=== PATIENT | male | born 1960 | race Caucasian/White ===

== ENCOUNTER → 2016-08-11 | Outpatient (CLI) | payer OTHER ==
--- NOTE | 2016-08-11 08:52 | MR ---
EXAMINATION TYPE: MR knee RT wo con DATE OF EXAM: 08/11/2016 8:26 AM COMPARISON: Correlation outside radiographs 07/31/2016 HISTORY: 55-year-old male with right Knee Pain, prior surgery. TECHNIQUE: Multiplanar, multisequence imaging of the right knee is performed without IV contrast. FINDINGS: ACL, PCL, MCL, and LCL complex are intact. There is some intermediate signal at the femoral origin of the true LCL and at the fibular attachment of the conjoined tendon suggesting mild chronic sprains. In addition, there is moderate fluid seen tracking down along the popliteus myotendinous junction lik verna communicating with the knee joint. A 2.4 cm ganglion cyst formation is possible. There is inner margin fraying of the body of the lateral meniscus and suspected tiny undersurface tea r near the root of the anterior horn, coronal image 17 and sagittal image 22. There is also a partial ly discoid lateral meniscus. Overall lateral compartment articular cartilage volume is maintained. There is an oblique tear involving the posterior horn of the medial meniscus and markedly diminutive medial meniscal body. Severe loss of cartilage and joint space in the weightbearing and peripheral me dial compartment with subchondral bony irregularity, sclerosis, edema, and marginal spurring. There is mild irregular cartilage loss within the patellofemoral compartment especially along the med ial patellar and trochlear facets. There is some mild marginal spurring in the patellofemoral compart ment also noted. Small knee joint effusion mild chronic synovitis and suggestion of small loose bodies anteriorly sumi uring up to 2 mm, sagittal image 16. There is trace fluid seen extending between the tendons of the semimembranosus and medial head gastro cnemius. There is intermediate signal at the semimembranosus insertion onto the medial tibial plateau compatible with tendinosis. Extensor mechanism is intact. Arthroscopy portals are suggested. Normal popliteal artery anatomy and muscle bulk. No suspicious bone marrow replacement. IMPRESSION: 1. Severe medial compartmental osteoarthrosis. The medial meniscal body is markedly diminutive, eithe r sequela of previous meniscectomy or chronic tear. However, there is additional oblique tear involvi ng the posterior horn of the medial meniscus. 2. Small undersurface tear anterior horn lateral meniscus and some inner margin fraying of the latera l meniscal body. The lateral meniscus is also noted to be partially discoid. 3. Mild patellofemoral compartment osteoarthrosis. 4. Small knee joint effusion with mild chronic synovitis and tiny anterior loose bodies measuring 2 m m. 5. Either extension of joint fluid along the popliteus tendon sheath or the development of a 2.4 cm g anglion cyst. 6. Semimembranosus insertional tendinosis.
== END ==
LOC: RADMRIMAIN 07:23
PROVIDERS: ATTEND Orthopaedic Surgery
DX: M23.241 Derangement of anterior horn of lateral meniscus due to old tear or injury, right knee (principal); M17.11 Unilateral primary osteoarthritis, right knee; M65.9 Synovitis and tenosynovitis, unspecified; M67.461 Ganglion, right knee

== ENCOUNTER 2016-09-07 00:30 | Emergency (ER) | payer OTHER ==
[2016-09-07] MEDS ORDERED: SODIUM CHLORIDE 0.9% 1,000 ML IV SCH (01:15)
[2016-09-07] MEDS: SODIUM CHLORIDE 0.9% 1,000 ML IV ONE ×2 (01:19→01:28)
[2016-09-07] MEDS ORDERED: MORPHINE SULFATE 2 MG/ML SYRINGE IVP ONE (01:27)
[2016-09-07] MEDS ORDERED: diphenhydrAMINE 50 MG/ML 1 ML VIAL IVP STA (01:48)
[2016-09-07] MEDS ORDERED: METOCLOPRAMIDE 5 MG/ML 2 ML VIAL IVP STA (01:48)
[2016-09-07 01:50] VITALS: RESP 18
--- NOTE | 2016-09-07 01:53 | ED ---
Recheck HPI - General Chief Complaint: Recheck/Abnormal Lab/Rx Stated Complaint: POST OP Complication Time Seen by Provider: 09/07/16 00:53 Source: patient, EMS, RN notes reviewed Mode of arrival: EMS Limitations: no limitations - History of Present Illness Initial Comments: Patient is a 55-year-old male with chief complaint of vomiting blood and headache the same day after a rhinoplasty. Patient reports that he had a rhinoplasty done by Dr. Jimenez at [facility] today. They stated the patient was discharged and was doing fine. He states that over the past few hours he's had multiple episodes of vomiting and every time he vomited a significant amount of blood from it, patient thinks he is swallowing the blood. He is not on any blood thinners. He also states that he thinks he vomited the medication. Patient denies any chest pain or shortness of breath. He does have a history of hypertension and hyperlipidemia. Patient arrived via EMS and was given 4 mg of Zofran and 4 mg morphine. - Related Data Allergies Allergy/AdvReac Type Severity Reaction Status Date / Time No Known Allergies Allergy Verified 09/07/16 01:14 Review of Systems ROS Statement: Those systems with pertinent positive or pertinent negative responses have been documented in the HPI. ROS Other: All systems not noted in ROS Statement are negative. Past Medical History Past Medical History: Hypertension History of Any Multi-Drug Resistant Organisms: None Reported Past Surgical History: Orthopedic Surgery Additional Past Surgical History / Comment(s): nasal septum repair, nasal polyps , knee Past Psychological History: No Psychological Hx Reported Smoking Status: Never smoker Past Alcohol Use History: None Reported Past Drug Use History: None Reported General Exam - General Exam Comments Initial Comments: pleasant 55 year old male, no distress. Cotton gauze tapped over nares. Limitations: no limitations General appearance: alert, in no apparent distress Head exam: Present: atraumatic, normocephalic, normal inspection Eye exam: Present: normal appearance, PERRL, EOMI. Absent: scleral icterus, conjunctival injection, periorbital swelling ENT exam: Present: mucous membranes moist, TM's normal bilaterally (Evidence of bleeding in the posterior oropharynx.). Absent: normal exam (Bilateral nasal septum swelling. Blood clots in bilateral nares.), normal oropharynx Neck exam: Present: normal inspection. Absent: tenderness, meningismus, lymphadenopathy Respiratory exam: Present: normal lung sounds bilaterally. Absent: respiratory distress, wheezes, rales, rhonchi, stridor Cardiovascular Exam: Present: regular rate, normal rhythm, normal heart sounds. Absent: systolic murmur, diastolic murmur, rubs, gallop, clicks GI/Abdominal exam: Present: soft, normal bowel sounds. Absent: distended, tenderness, guarding, rebound, rigid Extremities exam: Present: normal inspection, full ROM, normal capillary refill. Absent: tenderness, pedal edema, joint swelling, calf tenderness Back exam: Present: normal inspection Neurological exam: Present: alert, oriented X3, CN II-XII intact Psychiatric exam: Present: normal affect, normal mood Skin exam: Present: warm, dry, intact, normal color. Absent: rash Course Vital Signs 09/07/16 09/07/16 09/07/16 00:36 01:43 02:13 Temperature 97.3 F L Pulse Rate 113 H 108 H Pulse Rate [ 106 H Sitting] Pulse Rate [ 108 H Standing] Pulse Rate [ 104 H Supine] Respiratory 16 18 Rate Blood Pressure 168/87 153/85 Blood Pressure 163/87 [Sitting] Blood Pressure 152/70 [Standing] Blood Pressure 162/80 [Supine] O2 Sat by Pulse 92 L 93 L Oximetry 09/07/16 03:49 Temperature 96.9 F L Pulse Rate 107 H Pulse Rate [ Sitting] Pulse Rate [ Standing] Pulse Rate [ Supine] Respiratory 18 Rate Blood Pressure 156/77 Blood Pressure [Sitting] Blood Pressure [Standing] Blood Pressure [Supine] O2 Sat by Pulse 94 L Oximetry Medical Decision Making - Medical Decision Making Patient is a 55-year-old male with chief complaint of vomiting blood and headache the same day after a rhinoplasty. Patient reports that he had a rhinoplasty done by Dr. Jimenez at [facility] today. They stated the patient was discharged and was doing fine. He states that over the past few hours he's had multiple episodes of vomiting and every time he vomited a significant amount of blood from it, patient thinks he is swallowing the blood. Patient given IV fluids, and labs obtained. Patient does have mildly elevated WBC or 15.4 Again, patient has had continues vomiting and recent surgery. Patient does have some bleedingin posterior pharynx. Patient has rhinoplasty today, therefore rhinorocket placement is not avaliable. patient case discussed with Dr. Roman, whom did a face to face interview with patient. He recommends transaminic acid via IV to hold the bleeding. Patient agrees. I also discussedd the case with the contact lens curve grinder doctor of her surgeon while in the [facility], and he agrees to see them in the office tomorrow. Patient given IV reglan and zofran. He tolerated sprite and gingerale. Paitnet reports he feels well enough to go home. Patient will follow up tomorrow with surgerical specialist. Patient discharged with zofran po starter jhoan. j - Lab Data Result diagrams: 09/07/16 02:00 09/07/16 02:00 Lab Results 09/07/16 09/07/16 09/07/16 Range/Units 02:00 02:00 02:00 WBC 15.9 H (3.8-10.6) k/uL RBC 4.90 (4.30-5.90) m/uL Hgb 15.5 (13.0-17.5) gm/dL Hct 43.7 (39.0-53.0) % MCV 89.2 (80.0-100.0) fL MCH 31.6 (25.0-35.0) pg MCHC 35.4 (31.0-37.0) g/dL RDW 12.5 (11.5-15.5) % Plt Count 236 (150-450) k/uL Neutrophils % 91 % Lymphocytes % 5 % Monocytes % 3 % Eosinophils % 0 % Basophils % 0 % Neutrophils # 14.4 H (1.3-7.7) k/uL Lymphocytes # 0.8 L (1.0-4.8) k/uL Monocytes # 0.5 (0-1.0) k/uL Eosinophils # 0.0 (0-0.7) k/uL Basophils # 0.0 (0-0.2) k/uL PT 11.2 (9.0-12.0) sec INR 1.1 (<1.1) APTT 23.0 (22.0-30.0) sec Sodium 139 (137-145) mmol/L Potassium 4.7 (3.5-5.1) mmol/L Chloride 104 (98-107) mmol/L Carbon Dioxide 27 (22-30) mmol/L Anion Gap 8 mmol/L BUN 19 (9-20) mg/dL Creatinine 1.00 (0.66-1.25) mg/dL Est GFR (MDRD) Af Amer >60 (>60 ml/min/1.73 sqM) Est GFR (MDRD) Non-Af >60 (>60 ml/min/1.73 sqM) Glucose 141 H (74-99) mg/dL Calcium 9.2 (8.4-10.2) mg/dL Disposition Clinical Impression: Nausea & vomiting, Bleeding from nasopharynx Disposition: HOME SELF-CARE Condition: Good Instructions: Nosebleed (ED) Additional Instructions: Patient advised to follow-up tomorrow morning with ENT specialist. They're aware that he'll be calling them. Patient also can take a friend ODT every 8 hours. Take the pain medication as prescribed. I recommend remain hydrated with fluids. Return to the emergency department if any worsening signs or symptoms occur. Referrals: Rome Barkley DO [Primary Care Provider] - 1-2 days Time of Disposition: 03:30
[2016-09-07 02:10] LABS: Basophils % (A) 0 %; CH 32.5; CHCM 36.6; Eosinophils % (A) 0 %; HCT 43.7 % (39.0-53.0); HDW 2.75; HGB 15.5 gm/dL (13.0-17.5); Luc # (Auto) 0.15; Luc % (Auto) 1; Lymphocytes # (A) 0.8 k/uL (1.0-4.8); Lymphocytes % (A) 5 %; MCH 31.6 pg (25.0-35.0); MCHC 35.4 g/dL (31.0-37.0); MCV 89.2 fL (80.0-100.0); Mean Platelet Volume 7.3; Monocytes # (A) 0.5 k/uL (0-1.0); Monocytes % (A) 3 %; Neutrophils # (A) 14.4 k/uL (1.3-7.7); Neutrophils % (A) 91 %; RDW 12.5 % (11.5-15.5); WBC 15.9 k/uL (3.8-10.6); WBC (Perox) 15.92
[2016-09-07 02:21] LABS: Anion Gap 8 mmol/L; Blood Urea Nitrogen 19 mg/dL (9-20); Calcium 9.2 mg/dL (8.4-10.2); Carbon Dioxide 27 mmol/L (22-30); Chloride 104 mmol/L (98-107); Glucose 141 mg/dL (74-99); Non-African American GFR(MDRD) >60 (>60 ml/min/1.73 sqM); Potassium 4.7 mmol/L (3.5-5.1); Sodium 139 mmol/L (137-145)
[2016-09-07] MEDS ORDERED: TRANEXAMIC ACID 1,000 MG in SODIUM CHLORIDE 0.9% 100 ML IVPB ONE (02:33)
[2016-09-07 02:35] LABS: INR 1.1 (<1.1); Prothrombin Time 11.2 sec (9.0-12.0)
[2016-09-07] MEDS ORDERED: ONDANSETRON 4 MG ODT STARTER PACK 2 TAB BTL PO STA (03:30)
[2016-09-07 03:50] VITALS: BP 156/77; PULSE 107; TEMP 96.9
== END 2016-09-07 03:49 | disposition home or self-care (01) ==
LOC: EC 00:30
DX: R11.2 Nausea with vomiting, unspecified (principal); J95.830 Postprocedural hemorrhage of a respiratory system organ or structure following a respiratory system procedure
CPT/HCPCS: 36415; 80048; 85025; 85610; 85730; 99283; 96375; 96365; 96366; J2765; J2270; S0119